=== PATIENT | female | born 1960 | race Caucasian/White ===

== ENCOUNTER 2016-11-02 12:17 | Emergency (ER) | payer MEDICARE, OTHER ==
[2016-11-02] MEDS ORDERED: Metoprolol Tartrate 5 MG/5 ML VIAL ONE (12:47)
--- NOTE | 2016-11-02 14:08 | CT ---
NONCONTRAST HEAD CT HISTORY: Altered mental status. COMPARISON: 07/25/2015 TECHNIQUE: A noncontrast head CT is performed from the skull base to the skull vertex. FINDINGS: No parenchymal hemorrhage of extraaxial hematoma. No midline shift. The basilar cisterns are paten t. Age appropriate atrophy. Cortical gaviria white matter differentiation is preserved. The ventricles and sulci are patent and symmetric. The calvarium is intact. Adequate aeration of the sinuses and mastoid air cells. IMPRESSION: No acute intracranial process. POS: BRUNO
== END 2016-11-02 13:15 | disposition left against medical advice (07) ==
LOC: MADERS 12:17
DX: E16.2 Hypoglycemia, unspecified (principal); R40.2412 Glasgow coma scale score 13-15, at arrival to emergency department; I10 Essential (primary) hypertension; R56.9 Unspecified convulsions; J44.9 Chronic obstructive pulmonary disease, unspecified; F17.210 Nicotine dependence, cigarettes, uncomplicated; Z79.899 Other long term (current) drug therapy
CPT/HCPCS: 36416; 70450; 96374